=== PATIENT | female | born 1975 | race Caucasian/White ===

== ENCOUNTER → 2022-02-20 | Outpatient (CLI) | payer OTHER, SELFPAY ==
--- NOTE | 2022-02-20 07:29 | MRI_ITS ---
STUDY: MRI RIGHT KNEE REASON FOR EXAM: Female, 47 years old. MEDIAL AND POSTERIOR PAIN TECHNIQUE: Standardized fat and water weighted pulse sequences were obtained in all 3 orthogonal planes. COMPARISON: None. FINDINGS: A small oblique undersurface tear is present at the periphery of the posterior horn of the medial meniscus. Small amount of trapped fluid beneath the tear site. Normal remaining aspects of the medial meniscus. There is diffuse, less than 50% thickness articular cartilage loss of the medial femorotibial compartment. Normal medial femoral condyle and tibial plateau. Normal medial collateral ligamentous complex (MCL). Normal distal semimembranosus, gracilis and semitendinosus tendons. A small radial tear at the free edge of the body of the lateral meniscus is present which is partly truncated and subluxed out of the joint space due to joint space narrowing. Normal anterior horn and posterior horn of lateral meniscus. There is diffuse, less than 50% thickness articular cartilage loss of the lateral femorotibial compartment. Normal lateral femoral condyle and tibial plateau. Normal proximal tibiofibular articulation. Normal lateral collateral (fibular) ligament. Normal popliteus tendon. Normal biceps femoris tendon. Normal anterior cruciate ligament (ACL). Normal posterior cruciate ligament (PCL). Normal congruent patellofemoral articulation. Normal hyaline cartilage of the patellofemoral compartment. Normal medial and lateral patellar retinaculum. Normal quadriceps tendon. Normal patellar tendon. Normal Hoffa''s fat pad. Small joint effusion noted. The soft tissues are unremarkable. The otherwise visualized osseous structures are unremarkable. MRI/Lower Ext Joint Only (Routine) IMPRESSION: 1. A small radial tear at the free edge of the body of the lateral meniscus is present which is partly truncated and subluxed out of the joint space due to joint space narrowing. 2. Small oblique tear at the periphery of the posterior horn of medial meniscus. Electronically Signed: Arnaud Sal MD at 12:44 EDT ,
== END | disposition home or self-care (01) ==
PROVIDERS: Referring Provider Physician Assistant Surgical; Visit Provider Physician Assistant Surgical
DX: M25.561 Pain in right knee (principal)
CPT/HCPCS: 73721

== ENCOUNTER 2023-07-19 08:25 | Day surgery (SDC) | payer OTHER, SELFPAY ==
--- NOTE | 2023-07-16 12:32 | PCM.HP.BLA ---
History and Physical Date of Admission: 07/19/23 HPI: The patient is a 48 year old female presenting for pre-operative visit. She is scheduled for hysteroscopy D&C w/ IUD insertion, for menorrhagia, endometrial polyp on June. Procedure discussed along with risks, benefits and complications. Other alternatives discussed for management. Consent form signed? Yes. ? ? PAST MEDICAL HISTORY PAST MEDICAL HISTORY Diagnosis Date ? Congenital spondylolisthesis ? ? Migraine, unspecified, with intractable migraine, so stated, without mention of status migrainosus ? ? Migraine ? Spina bifida occulta ? ? ? PAST SURGICAL HISTORY PAST SURGICAL HISTORY Procedure Laterality Date ? DELIVERY ONLY ? 01/12/2008 ? , low cervical ? DELIVERY ONLY ? 02/19/11 ? , low transverse with BTO ? CYSTECTOMY PARTIAL SIMPLE ? 2008 ? Left Wrist ? PAST SURGICAL HISTORY OF ? ? ? SPINAL FUSION ? TONSILLECTOMY PRIMARY/SECONDARY <AGE 12 ? ? ? Tonsillectomy ? ? ? CURRENT MEDICATIONS Current Outpatient Medications Medication Sig Dispense Refill ? Desogestrel-Ethinyl Estradiol (APRI) 0.15-0.03 mg per tablet Take 1 tablet by mouth once daily. 84 tablet 3 ? miSOPROStol (CYTOTEC) 200 mcg tablet Use 2 tablets vaginally as directed. The night before the procedure and the morning of the procedure. (Patient not taking: Reported on 07/12/2023) 4 tablet 0 ? No current facility-administered medications for this visit. ? ? ALLERGIES: Morphine, Sulfa (Sulfonamide Antibiotics), and Tylenol Pm [Diphenhydramine-Acetaminophen] ? PERSONAL HISTORY: SOCIAL HISTORY Social History ? Tobacco Use ? Smoking status: Never ? Smokeless tobacco: Never Vaping Use ? Vaping Use: Never used Substance Use Topics ? Alcohol use: Not Currently ? ? Comment: 1 every 6 months ? Drug use: No ? FAMILY HISTORY: FAMILY HISTORY FAMILY HISTORY Problem Relation Age of Onset ? Arthritis Mother ? ? Cancer Mother ? ? Leukemia (slow-moving) ? Alcohol/Drug Father ? ? ETOH ? Thyroid Sister ? ? Colon Cancer Maternal Grandmother ? ? Breast Cancer Maternal Aunt ? ? ? REVIEW OF SYMPTOMS: GENERAL: denies fevers or chills ENDOCRINOLOGY: has not been on steroids Cardiology : denies palpitations or chest pain Respiratory: denies SOB or cough Hematology: denies history of prolonged bleeding or easy bruising or VTE Allergy: Denies history of personal or family history of allergy to anesthesia ? PHYSICAL EXAMINATION: ? VITALS: Blood pressure 104/62, pulse 74, height 4' 11.5 (1.511 m), weight 121 lb (54.9 kg), last menstrual period 05/27/2023, SpO2 100%. ? GENERAL: The patient is well nourished, well hydrated in no acute distress. , The patient is oriented to time, place, and person. NECK: Supple. No lynphadenopathy, normal thyroid, no thyromegaly. LUNGS: Clear to auscultation bilaterally. no wheezes, rhonchi or rales HEART: Regular rate and rhythm, Normal heart sounds, and No murmurs or gallops ? Pap and HRHPV neg on 06/18/23 ? ? IMPRESSION: aub, menorrhagia, endometrial polyp ? PLAN: The risks/benefits/alternatives and personal involved for the planned hysteroscopy D&C w/ polyp resection and IUD insertion were reviewed with the patient. Her questions were answered to her satisfaction and she desires to proceed. Consent was signed. I reviewed with her postop instructions and expectations. ? ? I have reviewed and updated past medical and surgical history, medications and allergies Assessment & Plan Assessment/Plan (1) Abnormal uterine bleeding (AUB): (2) Menorrhagia: (3) Endometrial polyp:
[2023-07-19] MEDS: Lactated Ringers 1,000 ML 15 ML IV (09:04)
[2023-07-19] MEDS: Acetaminophen 500 MG Tablet 1000 MG PO (09:05)
[2023-07-19] MEDS: Ketorolac 30 MG/ML Syringe IV (09:06)
[2023-07-19 09:08] VITALS: BP 103/72; PULSE 73; RESP 18; TEMP 36.6; O2SAT 100; BMI 24.0
[2023-07-19 09:13] LABS: Internal QC Validated? YES +Cl - CLEAR BKGD; Pregnancy, Urine Negative Negative; Record Kit Lot#,Urine Preg HCG0000718086
[2023-07-19 09:24] LABS: Hematocrit 38.5 % (37-47); Hemoglobin 11.8 g/dL (12.0-15.0); Mean Corp Hgb Conc 30.6 g/dL (32-36); Mean Corpuscular Hgb 25.2 pg (27.0-32.0); Mean Corpuscular Volume 82.3 fL (81-99); Mean Platelet Vol. 11.5 fl (6.2-12.0); Platelet Count 275 K/mm3 (150-450); RBC Distribution Width CV 15.8 % (11.6-14.6); RBC Distribution Width SD 47.3 fl (35.1-43.9); Red Blood Count 4.68 M/mm3 (4.2-5.4); White Blood Count 4.9 K/mm3 (4.4-11.0)
--- NOTE | 2023-07-19 10:05 | EMB_PTH ---
PATIENT: WASHINGTON FERRARO LOC: [facility] [place] U#:[id number] AGE/SX: 48/F ROOM: RE07/19/[address]: Dr. Ana Peters MD : [id number] BED: DIS: 07/19/2023 SPEC #: [id number] RECD: 07/19/23 12:03 STATUS: [facility] REQ #: [id number] REMIGIO: 07/19/23 10:[address]: Ana Peters DEPT: SURGICAL PATHOLOGY RECD BY: Radha Castle ENTERED: 07/19/23 12:29 SP TYPE: ENDOM BX/C OT DR: No Primary Care Phys Tissues: Endometrium, NOS Procedures: Surgery Specimen Level IV HEADER OPERATION: Hysteroscopy, D&C, polypectomy, Symphion, IUD insertion PRE-OP DIAGNOSIS: Endometrial polyp, Abnormal uterine bleeding, Menorrhagia TISSUE SUBMITTED: Endometrial Curettings MICROSCOPIC DIAGNOSIS Endometrial Curettings; Proliferative endometrium with focal glandular and stromal breakdown. Fragments of benign endocervical mucosa. / 07/22/2023 MICROSCOPIC DESCRIPTION Slides are reviewed. GROSS DESCRIPTION Received in fixative is one container labeled with the patient's name and designated Endometrial Curettings. The specimen consists of multiple irregular fragments of pink soft tissue that in aggregate measure 2.5 x 2.0 x 0.1 cm. The specimen is totally submitted in one cassette. / 07/19/23 TC:5 CPT: 80632
--- NOTE | 2023-07-19 10:16 | PCM.DC ---
Discharge Instructions Diet Discharge Diet: No restrictions Activity Discharge Activity: May Shower and May Take a Tub Bath (in 7-10 days) May resume sexual activity in: 1-2 weeks and 2 weeks Lifting Restrictions: none Dressing / Incision Call your doctor if your incision/area has: Sudden Increased Bleeding and Foul Smelling Discharge Call your doctor if you observe: Fever of 101 or Higher and Using more than 1 pad per hour (for 2 hrs in a row) Follow Up Care Please Follow Up With: Ana Peters MD When: You do not need a postop appointment. If you continue to have abnormal bleeding please contact the office at [phone] or send a [employer] message. If any questions or concerns let us know. Test Results: Test results from this visit will be discussed in further detail at your follow-up appointment, if applicable. Discharge Plan Admission Attending Provider: Ana Peters Primary Care Provider: Care PhysicianCoreen Primary Discharge Orders/Prescriptions Prescriptions: No Action desogestrel-ethinyl estradiol [Isibloom] 0.15-0.03 mg tablet 1 tab PO DAILY Patient Comments: TAKE 1 TABLET BY MOUTH EVERY DAY multivitamin [Daily Multi-Vitamin] Tablet 1 tab PO DAILY Referrals / Follow Up: Care Physician,No Primary [Primary Care Provider] - Disposition Disposition (needs filled in before D/C Order can be placed): Home, Self Care
--- NOTE | 2023-07-19 10:18 | PCM.OPRPT ---
Problems Associated Problem List Diagnoses (1) Endometrial polyp: (2) Menorrhagia: (3) Abnormal uterine bleeding (AUB): Report of Operation Date of Procedure: 07/19/23 Pre-Operative Diagnosis: endometrial polyp, AUB, menorrohagia Post-Operative Diagnosis: same + IUD insertion Surgery/Procedure Performed:: Hysteroscopy D&C w/ polyp repection and Liletta IUD insertion Description of Surgical Findings:: normal cervix and vagina, normal appearing endometrial cavity and endocervix Surgeon: Ana Peters stationary plant operators: Angelica Garcia [id number] Type of Anesthesia: MAC/Supplemental/Local Anesthesiologist: Alexandrea Diaz Special Medications: none Specimen's removed: endometrial curettings, endometrial polyp Drains: none Estimated Blood Loss (mL): 10 Fluids Replaced: 400 cc Description of Procedure: The patient was taken to the OR where she was prepped and draped in dorsal lithotomy position. The weighted speculum was placed in the vagina and the anterior lip of the cervix was grasped with a single-tooth tenaculum. The cervix was dilated serially with Hegar dilators. The Symphion hysteroscope was placed into the uterine cavity and the above findings were noted. Bilateral tubal ostia were identified. The hysteroscope was removed. A gentle sharp curettage was done of the uterine cavity. The Liletta IUD was then inserted in the usual sterile fashion and the strings cut to 2 cm. The instruments were removed from the vagina. The specimen was handed off and sent to pathology. All sponge and needle counts were correct. Vaginal sweep was performed by me. The patient was awakened and taken to the recovery room in stable condition. Calculated hysteroscopic fluid deficit is presently 100 cc of normal saline Grafts/Implants Used: Liletta IUD Procedure Start Time: 10:30 Procedure Stop Time: 10:40 Complications none Admit VTE Documentation VTE Present on Admission: No VTE Mechan Device Prophylaxis: SCD's VTE Pharm Prophylaxis ordered?: No Reason prophylaxis not ordered:: Procedure Not Indicated
[2023-07-19] MEDS: Levonorgestrel IUD (Liletta) 1 EACH INTRA-UTER (10:37)
[2023-07-19 10:48] VITALS: BP 103/72; BP 89/64; PULSE 72; RESP 16; TEMP 36.7; O2SAT 100
[2023-07-19 10:55] VITALS: BP 103/72; BP 90/61; PULSE 72; RESP 16; O2SAT 99
[2023-07-19 11:00] VITALS: BP 103/72; BP 94/58; PULSE 69; RESP 16; O2SAT 100
[2023-07-19 11:05] VITALS: BP 103/72; BP 88/61; PULSE 65; RESP 16; TEMP 36.8; O2SAT 98
== END 2023-07-19 12:10 | disposition home or self-care (01) ==
LOC: SDC 08:26 → AC 08:28
PROVIDERS: Anesthesiology; Referring Provider Obstetrics & Gynecology; Visit Provider Obstetrics & Gynecology
PROC: 0UB98ZZ Excision of Uterus, Via Natural or Artificial Opening Endoscopic (ICD-10-PCS; CPT 58558; principal; 2023-07-19 09:50)
DX: N93.9 Abnormal uterine and vaginal bleeding, unspecified (principal); N92.0 Excessive and frequent menstruation with regular cycle; Z30.430 Encounter for insertion of intrauterine contraceptive device
CPT/HCPCS: 58558; 58300; 00952; 81025; 84443; 85027; 88305; J7120; J2405